=== PATIENT | female | born 1970 | race Caucasian/White ===

== ENCOUNTER 2017-11-08 14:26 | Emergency (ER) | payer MEDICAID ==
[~2017-11-08] VITALS: Ht 172.7 cm; Wt 72.7 kg
[~2017-11-08 14:26] MED LIST: ALB0.5UD IH; HYDR-3965 PO; IBUP-1984 PO; NAPR-56 PO; PHEN-873 PO; PROP10TA10 PO; TRAZ-91 PO
[2017-11-08 15:16] VITALS: BP 123/79
== END 2017-11-08 15:18 | disposition home or self-care (01) ==
LOC: ER 14:27
DX: Z02.89 Encounter for other administrative examinations (principal); F15.10 Other stimulant abuse, uncomplicated; J45.909 Unspecified asthma, uncomplicated; F41.9 Anxiety disorder, unspecified; F32.9 Major depressive disorder, single episode, unspecified; Z90.49 Acquired absence of other specified parts of digestive tract; Z88.0 Allergy status to penicillin; Z88.6 Allergy status to analgesic agent
CPT/HCPCS: 99281

== ENCOUNTER 2019-11-03 05:20 | Emergency (ER) | payer MEDICAID ==
[~2019-11-03] VITALS: Ht 172.7 cm; Wt 81.8 kg
[~2019-11-03 05:20] MED LIST changes: -NAPR-56 PO; +PHEN-786 PO; -PHEN-873 PO
[2019-11-03] MEDS ORDERED: ketorolac trometh inj. 60 MG/2 ML VIAL IM ONE (06:25)
[2019-11-03] MEDS ORDERED: HYDROcodone/acetaminophen 5mg/325mg tablet PO ONE (06:25)
[2019-11-03] MEDS ORDERED: HYDR-3965 PO (06:27)
[2019-11-03 07:08] VITALS: BP 120/71
== END 2019-11-03 07:10 | disposition home or self-care (01) ==
LOC: ER 05:20
DX: M79.604 Pain in right leg (principal); J45.909 Unspecified asthma, uncomplicated; F41.9 Anxiety disorder, unspecified; F32.9 Major depressive disorder, single episode, unspecified; F15.90 Other stimulant use, unspecified, uncomplicated; Z90.49 Acquired absence of other specified parts of digestive tract; Z56.0 Unemployment, unspecified; Z88.0 Allergy status to penicillin; Z88.8 Allergy status to other drugs, medicaments and biological substances; Z79.899 Other long term (current) drug therapy; W01.0XXA Fall on same level from slipping, tripping and stumbling without subsequent striking against object, initial encounter; Y93.89 Activity, other specified; Y92.89 Other specified places as the place of occurrence of the external cause; Y99.8 Other external cause status
CPT/HCPCS: 73590; 96372; 99284; J1885

== ENCOUNTER 2024-04-30 00:05 | Emergency (ER) | payer MEDICAID ==
[~2024-04-30] VITALS: Ht 172.7 cm; Wt 72.7 kg
[2024-04-30] MEDS: LIDOcaine 1% 30ml preserv. free vial SQ STA (00:49)
[2024-04-30] MEDS ORDERED: CEPH-585 PO (02:37)
[2024-04-30] MEDS ORDERED: DOXY-356 PO (02:37)
[2024-04-30] MEDS: ibuprofen tablet 400 MG TABLET PO ONE (02:41)
[2024-04-30] MEDS: acetaminophen 325mg tablet PO ONE (02:41)
[2024-04-30] MEDS: DOXYCYCLINE 100MG CAPSULE PO STA (02:41)
[2024-04-30] MEDS: cephalexin 500mg capsule PO ONE (02:42)
[2024-04-30 03:08] VITALS: BP 127/82; PULSE 92; RESP 18; TEMP 97.7; O2SAT 98
== END 2024-04-30 03:11 | disposition home or self-care (01) ==
LOC: ER 00:06
DX: L02.414 Cutaneous abscess of left upper limb (principal); L03.114 Cellulitis of left upper limb; J45.909 Unspecified asthma, uncomplicated; F41.9 Anxiety disorder, unspecified; F32.A Depression, unspecified; Z90.49 Acquired absence of other specified parts of digestive tract; F15.90 Other stimulant use, unspecified, uncomplicated; Z56.0 Unemployment, unspecified; Z88.0 Allergy status to penicillin; Z88.8 Allergy status to other drugs, medicaments and biological substances; Z79.2 Long term (current) use of antibiotics; Z79.899 Other long term (current) drug therapy
CPT/HCPCS: 10060; 99284; A6449